=== PATIENT | male | born 1985 | race Caucasian/White ===

== ENCOUNTER 2018-02-23 06:07 | Emergency (ER) | payer MEDICAID ==
[~2018-02-23] VITALS: Ht 180.3 cm; Wt 74.8 kg
[~2018-02-23 06:07] MED LIST: AMOX500 PO; HYDACE5 PO; PENVK500 PO; RXTRAM50 PO; TRAM50 PO
[2018-02-23] MEDS ORDERED: Bactrim Ds Tab1 EACH PO (06:22)
== END 2018-02-23 06:42 | disposition home or self-care (01) ==
LOC: ER 06:07
DX: L02.511 Cutaneous abscess of right hand (principal); L03.113 Cellulitis of right upper limb; Z79.899 Other long term (current) drug therapy; F17.210 Nicotine dependence, cigarettes, uncomplicated
CPT/HCPCS: 90714; 96372; 99283

== ENCOUNTER 2018-04-05 19:36 | Emergency (ER) | payer MEDICAID ==
[~2018-04-05] VITALS: Ht 180.3 cm; Wt 74.8 kg
[~2018-04-05 19:36] MED LIST changes: +Bactrim Ds Tab1 EACH PO
[2018-04-07 10:10] LABS: HCV ANTIBODY 0.2 (0.0-0.9)
== END 2018-04-05 21:10 | disposition home or self-care (01) ==
LOC: ER 19:36
PROVIDERS: Physician Assistant
DX: S61.232A Puncture wound without foreign body of right middle finger without damage to nail, initial encounter (principal); Z23 Encounter for immunization; F17.210 Nicotine dependence, cigarettes, uncomplicated; W46.0XXA Contact with hypodermic needle, initial encounter
CPT/HCPCS: 36415; 84460; 86317; 86803; 90471; 90714; 99282